=== PATIENT | male | born 1965 | race Caucasian/White ===

== ENCOUNTER 2019-04-22 18:00 | Emergency (ER) | payer OTHER ==
[2019-04-22] MEDS ORDERED: hydrALAzine 20 MG INJ IV ×2 (18:30→22:30)
[2019-04-22] MEDS ORDERED: ALBUTEROL/IPRATROPIUM (NEB) 3 ML AMP HHN (18:30)
[2019-04-22] MEDS ORDERED: ACETAMINOPHEN 325 MG TAB PO ×2 (18:30)
[2019-04-22] MEDS ORDERED: DOCUSATE SODIUM 100 MG CAP PO (18:30)
[2019-04-22] MEDS ORDERED: NITROGLYCERIN (SL) 0.4 MG TAB SL (18:30)
[2019-04-22] MEDS ORDERED: ONDANSETRON 4 MG INJ IV ×2 (18:30)
[2019-04-22] MEDS ORDERED: morphine 2 MG INJ IV (18:30)
[2019-04-22] MEDS ORDERED: HYDROCODONE/APAP (5/325) TAB PO (18:30)
[2019-04-22] MEDS ORDERED: LORAZEPAM 2 MG INJ IV (18:30)
[2019-04-22] MEDS ORDERED: NACL 0.9% 3 ML SYG IV (18:30)
[2019-04-22] MEDS: FAMOTIDINE 20 MG INJ IV (18:30)
[2019-04-22] MEDS ORDERED: MAGNESIUM HYDROXIDE 30ML CUP PO (18:30)
[2019-04-22] MEDS ORDERED: DEXTROSE 50% 50 ML SYRINGE IV ×2 (19:30)
[2019-04-22] MEDS ORDERED: GLUCOSE GEL 15 GRAM TUBE BUCCAL (19:30)
[2019-04-22] MEDS ORDERED: GLUCOSE GEL 15 GRAM TUBE PO ×2 (19:30)
[2019-04-22] MEDS ORDERED: GLUCAGON 1 MG INJ IM (19:30)
[2019-04-22] MEDS: ATORVASTATIN 80 MG TAB PO (19:33)
[2019-04-22 19:47] LABS: TROPONIN-I < 0.012 ng/ml (0.000-0.120)
[2019-04-22 20:28] LABS: ADD MAN DIFF? NO
[2019-04-22 20:29] LABS: WHITE BLOOD COUNT 8.2 10^3/ul (4.8-10.8)
[2019-04-22 20:29] LABS: BASOPHIL # 0.1 10^3/ul (0.0-0.1); BASOPHILS % 0.7 % (0.0-2.0); EOSINOPHILS # 0.3 10^3/ul (0.0-0.5); EOSINOPHILS % 3.2 % (0.0-7.0); HEMATOCRIT 39.1 % (42.0-52.0); HEMOGLOBIN 13.7 g/dl (14.0-18.0); LYMPHOCYTES # 1.8 10^3/ul (0.8-2.9); LYMPHOCYTES % 21.6 % (15.0-51.0); MEAN CORPUSCULAR HEMOGLOBIN 31.1 pg (29.0-33.0); MEAN CORPUSCULAR VOLUME 88.7 fl (82.0-101.0); MEAN PLATELET VOLUME 9.8 fl (7.4-10.4); MONOCYTE # 0.9 10^3/ul (0.3-0.9); NEUTROPHIL # 5.2 10^3/ul (1.6-7.5); NEUTROPHILS % 63.1 % (39.0-77.0); PLATELET COUNT 225 10^3/UL (140-415); RED BLOOD COUNT 4.41 10^6/ul (4.70-6.10); RED CELL DISTRIBUTION WIDTH 12.6 % (11.5-14.5)
[2019-04-22 20:35] LABS: ANION GAP 3 (5-13); BLOOD UREA NITROGEN 21 mg/dl (7-20); CALCIUM 8.9 mg/dl (8.4-10.2); CARBON DIOXIDE 29 mmol/L (21-31); CHLORIDE 98 mmol/L (97-110); CREATININE 1.37 mg/dl (0.61-1.24); Estimated GFR 54 mL/min (>60); GLUCOSE 110 mg/dl (70-220); POTASSIUM 5.1 mmol/L (3.5-5.1); SODIUM 130 mmol/L (135-144)
[2019-04-22] MEDS: INSULIN ASPART [NOVOLOG] 3 ML PEN SC (21:32)
[2019-04-22] MEDS: METOPROLOL 25 MG TAB PO (21:59)
[2019-04-22] MEDS: ENOXAPARIN 80 MG/0.8 ML SYG SC (22:00)
[2019-04-22] MEDS: LISINOPRIL 20 MG TAB PO (22:05)
[2019-04-22] MEDS: hydrALAzine 20 MG INJ IV (22:07)
[2019-04-23] MEDS: ACCU-CHEK XX (02:00)
[2019-04-23 02:11] LABS: TROPONIN-I 0.024 ng/ml (0.000-0.120)
[2019-04-23 05:36] LABS: ADD MAN DIFF? NO
[2019-04-23 05:44] LABS: BASOPHIL # 0.1 10^3/ul (0.0-0.1); BASOPHILS % 0.7 % (0.0-2.0); EOSINOPHILS # 0.2 10^3/ul (0.0-0.5); EOSINOPHILS % 2.6 % (0.0-7.0); HEMATOCRIT 39.1 % (42.0-52.0); HEMOGLOBIN 13.9 g/dl (14.0-18.0); LYMPHOCYTES # 1.6 10^3/ul (0.8-2.9); LYMPHOCYTES % 19.1 % (15.0-51.0); MEAN CORPUSCULAR HEMOGLOBIN 31.7 pg (29.0-33.0); MEAN CORPUSCULAR HGB CONC 35.5 g/dl (32.0-37.0); MEAN CORPUSCULAR VOLUME 89.1 fl (82.0-101.0); MEAN PLATELET VOLUME 8.9 fl (7.4-10.4); MONOCYTE # 0.7 10^3/ul (0.3-0.9); MONOCYTES % 8.7 % (0.0-11.0); NEUTROPHIL # 5.6 10^3/ul (1.6-7.5); NEUTROPHILS % 68.7 % (39.0-77.0); PLATELET COUNT 249 10^3/UL (140-415); RED BLOOD COUNT 4.39 10^6/ul (4.70-6.10); RED CELL DISTRIBUTION WIDTH 12.5 % (11.5-14.5)
[2019-04-23 05:44] LABS: WHITE BLOOD COUNT 8.2 10^3/ul (4.8-10.8)
[2019-04-23 06:02] LABS: ANION GAP 6 (5-13); BLOOD UREA NITROGEN 23 mg/dl (7-20); CALCIUM 8.5 mg/dl (8.4-10.2); CARBON DIOXIDE 27 mmol/L (21-31); CHLORIDE 99 mmol/L (97-110); CREATININE 1.45 mg/dl (0.61-1.24); Estimated GFR 51 mL/min (>60); GLUCOSE 145 mg/dl (70-220); MAGNESIUM 2.1 mg/dl (1.7-2.5); PHOSPHORUS 5.1 mg/dl (2.5-4.9); POTASSIUM 4.7 mmol/L (3.5-5.1); SODIUM 132 mmol/L (135-144)
[2019-04-23 06:07] LABS: CHOLESTEROL 274 mg/dl (100-200)
[2019-04-23 06:07] LABS: CHOL/HDL RATIO 4.7 RATIO; HDL CHOLESTEROL 58 mg/dl (28-71); LDL CHOLESTEROL,CALCULATED 173 mg/dl; TRIGLYCERIDES 217 mg/dl (0-149)
[2019-04-23 06:21] LABS: HEMOGLOBIN A1C 5.2 % (0-5.9)
[2019-04-23 07:41] LABS: TROPONIN-I 0.096 ng/ml (0.000-0.120)
[2019-04-23] MEDS: LISINOPRIL 20 MG TAB PO (09:00)
[2019-04-23] MEDS ORDERED: ASPIRIN (EC) 325 MG TAB PO (09:00)
[2019-04-23] MEDS ORDERED: FUROSEMIDE 40 MG INJ IV (09:00)
[2019-04-23] MEDS ORDERED: hydrALAzine 20 MG INJ (15:09)
== END 2019-04-23 12:28 | disposition left against medical advice (07) ==
LOC: E/R 04-23 12:28
DX: R07.9 Chest pain, unspecified (principal); R06.02 Shortness of breath; I50.9 Heart failure, unspecified
CPT/HCPCS: 80048; 80061; 82962; 83036; 83735; 84100; 84439; 84443; 84484; 85025; 96372; 96374; 96375; 99284-25

== ENCOUNTER 2019-04-23 12:29 | Inpatient (IN) | payer OTHER ==
[2019-04-23] MEDS ORDERED: MAGNESIUM HYDROXIDE 30ML CUP PO (13:00)
[2019-04-23] MEDS ORDERED: ACETAMINOPHEN 325 MG TAB PO ×2 (13:00)
[2019-04-23] MEDS ORDERED: ONDANSETRON 4 MG INJ IV ×2 (13:00)
[2019-04-23] MEDS ORDERED: NITROGLYCERIN (SL) 0.4 MG TAB SL (13:00)
[2019-04-23] MEDS ORDERED: NACL 0.9% 3 ML SYG IV (13:00)
[2019-04-23] MEDS ORDERED: DOCUSATE SODIUM 100 MG CAP PO (13:00)
[2019-04-23] MEDS ORDERED: ALBUTEROL/IPRATROPIUM (NEB) 3 ML AMP HHN (13:00)
[2019-04-23 13:13] LABS: ADD MAN DIFF? NO
[2019-04-23 13:26] LABS: WHITE BLOOD COUNT 7.4 10^3/ul (4.8-10.8)
[2019-04-23 13:26] LABS: BASOPHIL # 0.1 10^3/ul (0.0-0.1); BASOPHILS % 0.7 % (0.0-2.0); EOSINOPHILS # 0.2 10^3/ul (0.0-0.5); HEMATOCRIT 42.9 % (42.0-52.0); LYMPHOCYTES # 1.4 10^3/ul (0.8-2.9); LYMPHOCYTES % 18.6 % (15.0-51.0); MEAN CORPUSCULAR HEMOGLOBIN 31.1 pg (29.0-33.0); MEAN PLATELET VOLUME 8.6 fl (7.4-10.4); MONOCYTE # 0.8 10^3/ul (0.3-0.9); MONOCYTES % 10.3 % (0.0-11.0); NEUTROPHILS % 68.1 % (39.0-77.0); PLATELET COUNT 230 10^3/UL (140-415); RED BLOOD COUNT 4.82 10^6/ul (4.70-6.10); RED CELL DISTRIBUTION WIDTH 12.6 % (11.5-14.5)
[2019-04-23] MEDS: NICARDipine HCL 30 MG CAPSULE PO (13:45)
[2019-04-23 13:49] LABS: INR 0.83; PROTIME 11.5 Sec (11.9-14.9); PT RATIO 0.9
[2019-04-23 13:50] LABS: PARTIAL THROMBOPLASTIN TIME 31.2 Sec (23.0-35.0)
[2019-04-23 14:03] LABS: ALANINE AMINOTRANSFERASE 25 IU/L (13-69); ALBUMIN 3.1 g/dl (3.3-4.9); ALBUMIN/GLOBULIN RATIO 0.86; ALKALINE PHOSPHATASE 94 IU/L (42-121); ANION GAP 6 (5-13); ASPARTATE AMINO TRANSFERASE 56 IU/L (15-46); BILIRUBIN,INDIRECT 0.5 mg/dl (0-1.1); BILIRUBIN,TOTAL 0.5 mg/dl (0.2-1.3); BLOOD UREA NITROGEN 23 mg/dl (7-20); CALCIUM 8.9 mg/dl (8.4-10.2); CARBON DIOXIDE 24 mmol/L (21-31); CHLORIDE 102 mmol/L (97-110); CREATINE KINASE 662 IU/L (23-200); CREATININE 1.42 mg/dl (0.61-1.24); Estimated GFR 52 mL/min (>60); GLUCOSE 170 mg/dl (70-220); POTASSIUM 4.6 mmol/L (3.5-5.1); SODIUM 132 mmol/L (135-144); TOTAL PROTEIN 6.7 g/dl (6.1-8.1)
[2019-04-23 14:12] LABS: B-TYPE NATRIURETIC PEPTIDE 2460 PG/ML (0-125); CK INDEX 1.8
[2019-04-23 14:17] LABS: FREE T4 (FREE THYROXINE) 1.25 ng/dl (0.64-1.79)
[2019-04-23 14:32] LABS: TROPONIN-I 0.081 ng/ml (0.000-0.120)
[2019-04-23] MEDS: hydrALAzine 20 MG INJ IV (15:11)
[2019-04-23 19:09] LABS: CREATINE KINASE 667 IU/L (23-200)
[2019-04-23 19:20] LABS: CK INDEX 1.8
[2019-04-23 19:25] LABS: TROPONIN-I 0.059 ng/ml (0.000-0.120)
[2019-04-23] MEDS: HEPARIN 5,000 UNIT/1 ML VIAL SC (20:51)
[2019-04-23] MEDS: ATORVASTATIN 10 MG TAB PO (20:52)
[2019-04-23] MEDS: METOPROLOL 25 MG TAB PO (20:52)
[2019-04-24] MEDS: hydrALAzine 20 MG INJ IV ×3 (04:20→20:52)
[2019-04-24] MEDS: LORAZEPAM 2 MG INJ IV (04:21)
[2019-04-24 06:12] LABS: ADD MAN DIFF? NO
[2019-04-24 06:21] LABS: BASOPHIL # 0.1 10^3/ul (0.0-0.1); BASOPHILS % 0.8 % (0.0-2.0); EOSINOPHILS # 0.3 10^3/ul (0.0-0.5); EOSINOPHILS % 3.4 % (0.0-7.0); HEMATOCRIT 38.6 % (42.0-52.0); HEMOGLOBIN 13.6 g/dl (14.0-18.0); LYMPHOCYTES # 1.4 10^3/ul (0.8-2.9); LYMPHOCYTES % 17.6 % (15.0-51.0); MEAN CORPUSCULAR HEMOGLOBIN 31.4 pg (29.0-33.0); MEAN CORPUSCULAR HGB CONC 35.2 g/dl (32.0-37.0); MEAN CORPUSCULAR VOLUME 89.1 fl (82.0-101.0); MEAN PLATELET VOLUME 8.8 fl (7.4-10.4); MONOCYTE # 0.8 10^3/ul (0.3-0.9); MONOCYTES % 10.2 % (0.0-11.0); NEUTROPHIL # 5.4 10^3/ul (1.6-7.5); NEUTROPHILS % 67.7 % (39.0-77.0); PLATELET COUNT 240 10^3/UL (140-415); RED BLOOD COUNT 4.33 10^6/ul (4.70-6.10); RED CELL DISTRIBUTION WIDTH 12.4 % (11.5-14.5)
[2019-04-24 06:21] LABS: WHITE BLOOD COUNT 7.9 10^3/ul (4.8-10.8)
[2019-04-24 06:56] LABS: ANION GAP 4 (5-13); BLOOD UREA NITROGEN 24 mg/dl (7-20); CALCIUM 8.9 mg/dl (8.4-10.2); CARBON DIOXIDE 26 mmol/L (21-31); CHLORIDE 104 mmol/L (97-110); CREATININE 1.52 mg/dl (0.61-1.24); Estimated GFR 48 mL/min (>60); GLUCOSE 136 mg/dl (70-220); MAGNESIUM 1.9 mg/dl (1.7-2.5); PHOSPHORUS 4.5 mg/dl (2.5-4.9); POTASSIUM 4.5 mmol/L (3.5-5.1); SODIUM 134 mmol/L (135-144)
[2019-04-24 06:59] LABS: CHOLESTEROL 246 mg/dl (100-200)
[2019-04-24 06:59] LABS: CHOL/HDL RATIO 3.8 RATIO; HDL CHOLESTEROL 64 mg/dl (28-71); LDL CHOLESTEROL,CALCULATED 156 mg/dl; TRIGLYCERIDES 132 mg/dl (0-149)
[2019-04-24 07:23] LABS: HEMOGLOBIN A1C 5.2 % (0-5.9)
[2019-04-24] MEDS: METOPROLOL 25 MG TAB PO ×2 (09:03→20:37)
[2019-04-24] MEDS: ASPIRIN (EC) 325 MG TAB PO (09:03)
[2019-04-24] MEDS: FUROSEMIDE 40 MG INJ IV (09:04)
[2019-04-24] MEDS: LISINOPRIL 20 MG TAB PO ×2 (09:04→20:36)
[2019-04-24] MEDS: HEPARIN 5,000 UNIT/1 ML VIAL SC ×2 (09:20→20:45)
[2019-04-24] MEDS: REGADENOSON 0.4 MG/5 ML SYG (12:50)
[2019-04-24] MEDS: HYDROCODONE/APAP (5/325) TAB PO (19:21)
[2019-04-24] MEDS: ATORVASTATIN 10 MG TAB PO (20:34)
[2019-04-25] MEDS: LABETALOL HCL 20MG INJ IV (00:52)
[2019-04-25] MEDS: morphine 2 MG INJ IV ×2 (00:53→11:08)
[2019-04-25] MEDS: AMLODIPINE 5 MG TAB PO (05:54)
[2019-04-25 06:23] LABS: ADD MAN DIFF? NO
[2019-04-25 06:29] LABS: WHITE BLOOD COUNT 6.6 10^3/ul (4.8-10.8)
[2019-04-25 06:29] LABS: BASOPHIL # 0.1 10^3/ul (0.0-0.1); BASOPHILS % 0.9 % (0.0-2.0); EOSINOPHILS # 0.3 10^3/ul (0.0-0.5); HEMOGLOBIN 12.7 g/dl (14.0-18.0); LYMPHOCYTES # 2.2 10^3/ul (0.8-2.9); LYMPHOCYTES % 32.6 % (15.0-51.0); MEAN CORPUSCULAR HGB CONC 34.3 g/dl (32.0-37.0); MEAN CORPUSCULAR VOLUME 90.2 fl (82.0-101.0); MONOCYTE # 0.8 10^3/ul (0.3-0.9); MONOCYTES % 11.9 % (0.0-11.0); NEUTROPHIL # 3.3 10^3/ul (1.6-7.5); NEUTROPHILS % 49.3 % (39.0-77.0); PLATELET COUNT 216 10^3/UL (140-415); RED CELL DISTRIBUTION WIDTH 12.5 % (11.5-14.5)
[2019-04-25 06:54] LABS: ANION GAP 3 (5-13); BLOOD UREA NITROGEN 27 mg/dl (7-20); CALCIUM 8.5 mg/dl (8.4-10.2); CARBON DIOXIDE 27 mmol/L (21-31); CHLORIDE 103 mmol/L (97-110); CREATININE 1.59 mg/dl (0.61-1.24); Estimated GFR 46 mL/min (>60); GLUCOSE 104 mg/dl (70-220); POTASSIUM 3.8 mmol/L (3.5-5.1); SODIUM 133 mmol/L (135-144)
[2019-04-25] MEDS: FUROSEMIDE 40 MG INJ IV (08:10)
[2019-04-25] MEDS: LISINOPRIL 20 MG TAB PO ×2 (08:11→20:28)
[2019-04-25] MEDS: METOPROLOL 25 MG TAB PO ×2 (08:11→20:28)
[2019-04-25] MEDS: ASPIRIN (EC) 325 MG TAB PO (08:11)
[2019-04-25] MEDS: HYDROCODONE/APAP (5/325) TAB PO (08:12)
[2019-04-25] MEDS: HEPARIN 5,000 UNIT/1 ML VIAL SC ×2 (08:12→20:34)
[2019-04-25] MEDS: hydrALAzine 20 MG INJ IV (08:12)
[2019-04-25] MEDS: DILTIAZEM 30 MG TAB PO (20:27)
[2019-04-25] MEDS: ATORVASTATIN 10 MG TAB PO (21:00)
[2019-04-25] MEDS: traZODone 50 MG TAB PO (22:56)
[2019-04-26 07:48] LABS: ADD MAN DIFF? NO
[2019-04-26 07:51] LABS: BASOPHIL # 0.1 10^3/ul (0.0-0.1); BASOPHILS % 0.8 % (0.0-2.0); EOSINOPHILS # 0.4 10^3/ul (0.0-0.5); EOSINOPHILS % 5.9 % (0.0-7.0); HEMATOCRIT 37.8 % (42.0-52.0); HEMOGLOBIN 13.1 g/dl (14.0-18.0); LYMPHOCYTES # 1.8 10^3/ul (0.8-2.9); LYMPHOCYTES % 29.5 % (15.0-51.0); MEAN CORPUSCULAR HGB CONC 34.7 g/dl (32.0-37.0); MEAN CORPUSCULAR VOLUME 89.4 fl (82.0-101.0); MEAN PLATELET VOLUME 8.9 fl (7.4-10.4); MONOCYTE # 0.7 10^3/ul (0.3-0.9); MONOCYTES % 11.2 % (0.0-11.0); NEUTROPHIL # 3.2 10^3/ul (1.6-7.5); NEUTROPHILS % 52.4 % (39.0-77.0); PLATELET COUNT 231 10^3/UL (140-415); RED BLOOD COUNT 4.23 10^6/ul (4.70-6.10); RED CELL DISTRIBUTION WIDTH 12.4 % (11.5-14.5)
[2019-04-26 07:51] LABS: WHITE BLOOD COUNT 6.1 10^3/ul (4.8-10.8)
[2019-04-26 08:21] LABS: ANION GAP 5 (5-13); BLOOD UREA NITROGEN 31 mg/dl (7-20); CALCIUM 8.5 mg/dl (8.4-10.2); CARBON DIOXIDE 27 mmol/L (21-31); CHLORIDE 99 mmol/L (97-110); CREATININE 1.71 mg/dl (0.61-1.24); Estimated GFR 42 mL/min (>60); GLUCOSE 121 mg/dl (70-220); POTASSIUM 4.3 mmol/L (3.5-5.1); SODIUM 131 mmol/L (135-144)
[2019-04-26] MEDS: ASPIRIN (EC) 325 MG TAB PO (08:30)
[2019-04-26] MEDS: METOPROLOL 25 MG TAB PO ×2 (08:30→20:40)
[2019-04-26] MEDS: FUROSEMIDE 40 MG INJ IV (08:30)
[2019-04-26] MEDS: LISINOPRIL 20 MG TAB PO ×2 (08:31→20:40)
[2019-04-26] MEDS: DILTIAZEM 30 MG TAB PO ×2 (08:31→20:40)
[2019-04-26] MEDS: HEPARIN 5,000 UNIT/1 ML VIAL SC ×2 (08:37→20:55)
[2019-04-26] MEDS: SOD CHLORIDE 0.9% 500 ML IV (11:53)
[2019-04-26 13:22] LABS: ANION GAP 4 (5-13); BLOOD UREA NITROGEN 33 mg/dl (7-20); CALCIUM 8.5 mg/dl (8.4-10.2); CARBON DIOXIDE 26 mmol/L (21-31); CHLORIDE 99 mmol/L (97-110); Estimated GFR 45 mL/min (>60); GLUCOSE 99 mg/dl (70-220); POTASSIUM 3.9 mmol/L (3.5-5.1); SODIUM 129 mmol/L (135-144)
[2019-04-26] MEDS: ATORVASTATIN 10 MG TAB PO (20:40)
[2019-04-27 06:48] LABS: ADD MAN DIFF? NO
[2019-04-27 06:55] LABS: WHITE BLOOD COUNT 5.1 10^3/ul (4.8-10.8)
[2019-04-27 06:55] LABS: BASOPHILS % 0.8 % (0.0-2.0); EOSINOPHILS # 0.4 10^3/ul (0.0-0.5); HEMOGLOBIN 12.9 g/dl (14.0-18.0); LYMPHOCYTES # 1.4 10^3/ul (0.8-2.9); LYMPHOCYTES % 27.6 % (15.0-51.0); MEAN CORPUSCULAR HEMOGLOBIN 31.3 pg (29.0-33.0); MEAN CORPUSCULAR HGB CONC 35.8 g/dl (32.0-37.0); MEAN CORPUSCULAR VOLUME 87.4 fl (82.0-101.0); MEAN PLATELET VOLUME 8.9 fl (7.4-10.4); MONOCYTE # 0.6 10^3/ul (0.3-0.9); MONOCYTES % 11.5 % (0.0-11.0); NEUTROPHIL # 2.7 10^3/ul (1.6-7.5); NEUTROPHILS % 52.9 % (39.0-77.0); PLATELET COUNT 210 10^3/UL (140-415); RED BLOOD COUNT 4.12 10^6/ul (4.70-6.10); RED CELL DISTRIBUTION WIDTH 12.2 % (11.5-14.5)
[2019-04-27 07:15] LABS: ANION GAP 3 (5-13); BLOOD UREA NITROGEN 33 mg/dl (7-20); CALCIUM 8.2 mg/dl (8.4-10.2); CARBON DIOXIDE 26 mmol/L (21-31); CHLORIDE 101 mmol/L (97-110); CREATININE 1.49 mg/dl (0.61-1.24); Estimated GFR 49 mL/min (>60); GLUCOSE 120 mg/dl (70-220); POTASSIUM 3.9 mmol/L (3.5-5.1); SODIUM 130 mmol/L (135-144)
[2019-04-27] MEDS: LISINOPRIL 20 MG TAB PO (08:19)
[2019-04-27] MEDS: ASPIRIN (EC) 325 MG TAB PO (08:19)
[2019-04-27] MEDS: DILTIAZEM 30 MG TAB PO (08:19)
[2019-04-27] MEDS: METOPROLOL 25 MG TAB PO (08:19)
[2019-04-27] MEDS: HEPARIN 5,000 UNIT/1 ML VIAL SC (09:19)
== END 2019-04-27 14:00 | disposition home or self-care (01) | DRG 292 ==
LOC: E/R 12:29 → TEL 12:47
PROVIDERS: Hospitalist
DX: I11.0 Hypertensive heart disease with heart failure (principal); E87.1 Hypo-osmolality and hyponatremia; N17.9 Acute kidney failure, unspecified; I50.33 Acute on chronic diastolic (congestive) heart failure; I16.0 Hypertensive urgency; E11.9 Type 2 diabetes mellitus without complications; E78.5 Hyperlipidemia, unspecified; M79.605 Pain in left leg; M79.604 Pain in right leg; R60.0 Localized edema; Z79.4 Long term (current) use of insulin
CPT/HCPCS: 78452; 80048; 80053; 80061; 82550; 82553; 83036; 83735; 83880; 84100; 84439; 84443; 84484; 85025; 85610; 85730; 87081; 93005; 93017; 93306; 93970; 99285-25